=== PATIENT | female | born 1930 | race Caucasian/White ===

== ENCOUNTER 2016-10-29 21:58 | Emergency (ER) | payer MEDICARE, OTHER ==
[~2016-10-29] VITALS: Ht 154.9 cm; Wt 50.8 kg
[~2016-10-29 21:58] MED LIST: ALFA600T PO; ASCO1TAB2 PO; ASPI-558 PO; CALC PO; CHOL200026 PO; CITRATE PO; CRAN1CAP3 PO; CYAN100085 PO; GARL600T PO; GINK60CA13 PO; HERB1CAP2 PO; LUTE20CA3 PO; MAG PO; MEGA B PO; METO25TA41 PO; UBID200C8 PO; [UNRECOGNIZED DRUG - CODE] PO; [UNRECOGNIZED DRUG - CODE] PO; [UNRECOGNIZED DRUG - CODE] PO; [UNRECOGNIZED DRUG - CODE] PO; herbal laxative PO; thyroid support PO
[2016-10-29 22:00] VITALS: Ht 154.9 cm; Wt 50.8 kg
--- NOTE | 2016-10-29 22:23 | ERPDOC ---
Departure Disposition Decision Date: Oct 29, 2016 Disposition Decision Time: 22:34 (APRIL PECK APRN) Disposition: 01 DISCHARGED HOME, SELF-CARE Impression Impression (APRIL PECK APRN) Impression: Primary Impression: Finger laceration Encounter type: initial encounter Qualified Codes: S61.219A - Laceration without foreign body of unspecified finger without damage to nail, initial encounter Condition: Improved Seen By: Mid-level only (APRIL PECK APRN) Referrals: NOBLE PEACOCK (Family) Patient Instructions: Tetanus (ED), Laceration (ED) Problems/Meds/Labs Reviewed?: Yes Medications reviewed and manag: Yes (APRIL PECK APRN) Additional Instructions: 1. Have sutures removed in 7-10 days. 2. No soaking finger in water such as tub baths or dish washing while sutured 3. You may shower with stitches 4. Keep bandage on for 24 hours then you may remove it. Keep hand elevated as much as possible. Follow up care ordered?: Yes Mental Status: Alert, Oriented (APRIL PECK APRN) HPI - Skin General General Chief Complaint: Laceration Stated Complaint: FINGER LACERATION Time Seen by Provider: 22:23 Source: patient Exam Limitations: no limitations (APRIL PECK APRN) Time Seen by Provider: 22:23 (BERNY MEAD DO) HPI - Skin General Initial Comments Nancy is an 86 year old female who cut her right index finger this evening at home while cutting some raisin bread using a [employer] knife. Takes aspirin daily and no other thinners. Denies any current pain, took Tylenol [employer]. Unknown prior Td. Occurred At: home Onset: Rapid Duration: 1/2 hour Pain Scale: Now: 0/10 Location: hands Associated Symptoms: denies symptoms (APRIL PECK APRN) Allergies: Coded Allergies: No Known Allergies (Unverified , 10/30/13) Past History Past Medical History Metabolic: hypothyroidism (APRIL PECK APRN) Surgical History Reproductive/: hysterectomy (APRIL PECK APRN) Vaccines Hx Influenza Vaccination: No (doesn't take it) Hx Pneumococcal Vaccination: No (doesn't take this) (APRIL PECK APRN) Social History Smoking Status: Never smoker Substance Use Type: does not use Alcohol Intake: none Housing: house (APRIL PECK APRN) Review of Systems Musculoskeletal General: DENIES: pain (APRIL PECK APRN) Integumentary Skin: other (laceration right index finger) (APRIL PECK APRN) Neurological General: DENIES: numbness (APRIL PECK APRN) Hematologic/Lymphatic Hematologic/Lymphatic: DENIES: easy bruising (APRIL PECK APRN) All other Systems All Other Systems: Reviewed and Negative (APRIL PECK APRN) Physical Exam General General Nourishment: well nourished, well developed, appears stated age, no acute distress (APRIL PECK APRN) Vitals and Pain First Documented Vital Signs Date Time Temp Pulse Resp B/P Pulse Ox O2 Delivery O2 Flow Rate FiO2 10/29/16 22:00 98.2 72 18 170/75 98 Room Air (EB DO) Vitals and Pain Weight: Kilograms: 50.800 Height (feet): 5 Height (inches): 1.00 Triage Pain Scale: (APRIL PECK APRN) Musculoskeletal (brief) Musculoskeletal Brief: NOT FOUND: loss of motion, tenderness (APRIL PECK APRN) Integumentary (brief) Integumentary Brief: FOUND: dry, other (2.5 cm linear laceration right index finger distal pad-does not involve nail - no tendon injury, full strength), pink , warm (APRIL PECK APRN) Psychiatric (brief) Psychiatric Brief: FOUND: alert, attentive, normal affect, oriented (APRIL PECK APRN) Differential Diagnoses Considering: Laceration (APRIL PECK APRN) Procedures Procedures Performed Procedures Performed: Laceration Repair (APRIL PECK APRN) Laceration/Wound Repair Wound/Laceration Repair : Wound Location: upper extremity Wound Length (cm): 2.5 Explored: clean Irrigated: saline Prep: cmiclens Anesthesia: 1% Lidocaine Type of Block: local Repaired With: Sutures Suture Size: 4:0 Suture Type: prolene Number of Sutures: 4 (APRIL PECK APRN) Progress Results/Orders Orders Procedure Category Date Status Time Tetanus + Diphtheria PHA 10/29/16 Complete Toxoid (Tenivac) 22:30 Neomycin/Polymyxin/Bacitracin PHA 10/29/16 Complete [facility] Procedure Category Date Status Time Tetanus + Diphtheria PHA 10/29/16 Logged Toxoid (Tenivac) 22:30 (APRIL PECK APRN) Medications Current ED Medications Tetanus/ Diphtheria Toxoids Adsorbed (Tenivac) 0.5 ml O ONCE IM Last administered on 10/29/16 22:38; Start 10/29/16 at 22:30; Stop 10/30/16 at 01:08; Status DC Neomycin/ Polymyxin/ Bacitracin (Neosporin) 1 applic O ONCE TOP Last administered on 10/29/16 22:39; Start 10/29/16 at 22:45; Stop 10/30/16 at 01:08; Status DC ([facility]) Medications Current ED Medications Tetanus/ Diphtheria Toxoids Adsorbed (Tenivac) 0.5 ml O ONCE IM ; Start at 22:30; Stop 10/29/16 at 22:31; Status UNV (APRIL PECK APRN) APRIL PECK APRN Oct 29, 2016 22:23 [facility] Nov 01, 2016 03:48
[2016-10-29] MEDS ORDERED: TETANUS + DIPHTHERIA (Td)(Adult) 0.5ml SYRINGE IM ONE (22:30)
[2016-10-29 22:45] VITALS: BP 142/68; PULSE 65; RESP 16; TEMP 98.2; O2SAT 97
[2016-10-29] MEDS ORDERED: NEOMYCIN/POLYM/BACITR OINT PACKET TOP ONE (22:45)
== END 2016-10-29 22:45 | disposition home or self-care (01) ==
LOC: ED 21:58
DX: S61.210A Laceration without foreign body of right index finger without damage to nail, initial encounter (principal); W26.0XXA Contact with knife, initial encounter; Y93.G1 Activity, food preparation and clean up; Y92.009 Unspecified place in unspecified non-institutional (private) residence as the place of occurrence of the external cause; Y99.8 Other external cause status
CPT/HCPCS: 12001; 90471; 90714; 99283; A9270